=== PATIENT | female | born 1995 | race Two or more races ===

== ENCOUNTER 2024-05-04 08:44 | Emergency (ER) | payer OTHER, SELFPAY ==
[2024-05-04 08:53] VITALS: BP 106/71; PULSE 78; TEMP 36.7; O2SAT 98; BMI 26.3
--- NOTE | 2024-05-04 09:06 | XR_ITS ---
[address] [address] Patient Name: ARTEM ALMANZAR MRN: [id number] date: 1995 Sex: F Assigned Patient Location: ER Current Patient Location: ED.MAIN Accession/Order Number: [id number] Exam Date: 05/04/2024 09:28 Report Date: 05/04/2024 10:03 At the request of: KRISTINA BUCIO Procedure: XR chest 1V EXAM: XR chest 1V HISTORY: cough COMPARISON: None FINDINGS/IMPRESSION: 1. Lungs are clear 2. No pneumothorax. No pleural effusion. 3. Heart size and mediastinal contours are normal 4. No acute osseous abnormality Electronically authenticated by: GLORY CRUPM Date: 05/04/2024 10:03
[2024-05-04] MEDS: ONDANSETRON 4 MG RAPDIS TABLET SL (09:15)
--- NOTE | 2024-05-04 10:31 | ED.GENADUL1 ---
HPI HPI - General Adult General Chief complaint: Upper Respiratory Infection Stated complaint: NAUSEA AND VOMIT Time Seen by Provider: 05/04/24 08:57 Source: patient Mode of arrival: walk-in History of Present Illness HPI narrative: The patient is coming to the ER with almost 7 days history even not more of a coughing , the patient mentioned that she is not a smoker although she does smoke marijuana not very often the patient admitted that she needs a work excuse because her son is sick right now with influenza The patient also denies nausea vomiting or any other concerns. Related Data Previous Rx's ?Medication ?Instructions ?Recorded guaifenesin 600 mg tablet, 600 mg PO BID PRN cough #14 tabs 05/04/24 extended release 12 hr (Mucinex) prednisone 20 mg tablet 40 mg (2 x 20 mg) PO DAILY 5 days 05/04/24 #10 tabs Allergies Allergy/AdvReac Type Severity Reaction Status Date / Time No Known Drug Allergies Allergy Verified 05/04/24 08:56 Opioid HPI Opioid Management Most Recent Opioid Data: No Data to Display Review of Systems ROS Status of ROS 10 or more systems reviewed and unremarkable except as noted in history and below PFSH PFSH Social History Little interest or pleasure in doing things: not at all Feeling down, depressed, or hopeless: not at all Exam Narrative Exam Narrative: Nurses notes and vital signs reviewed and patient is not hypoxic. General: Well-appearing and in no apparent distress. Skin: Warm, dry, no pallor noted. No rash. Head: Normocephalic, atraumatic. Neck: Supple, non-tender. Eye: Pupils are equal, round and EOMI. No scleral icterus. Ears, Nose, Mouth, and Throat: TM are clear, no nasal mucosal hypertrophy. Oral mucosa is moist, no posterior oropharynx erythema, uvula is mid-line Cardiovascular: Regular Rate and Rhythm without murmur, gallop or rub. Respiratory: No accessory muscle use or respiratory distress. Lungs are clear to auscultation, no wheezing, rales or rhonchi Chest Wall: no tenderness Back: No midline thoracic or lumbar vertebral tenderness. No CVA tenderness Musculoskeletal: normal ROM, no calf or popliteal tenderness, no lower extremity edema/swelling GI: Abdomen is soft, non-distended. Normal bowel sounds. No masses appreciated. No tenderness to palpation. No rebound, guarding, or rigidity noted. Neurological: A&O x4. No cranial nerve dysfunction observed. No truncal ataxia. Moves all extremities. Sensation intact. Psychiatric: Cooperative and interactive. Normal mood and affect. Constitutional Vital Signs, click to edit/add: Last Vital Signs Temp 98.1 F 05/04/24 08:53 Pulse 78 05/04/24 08:53 Resp 20 05/04/24 08:53 BP 106/71 05/04/24 08:53 Pulse Ox 98 05/04/24 08:53 Course Vital Signs Vital signs: Vital Signs Temperature 98.1 F 05/04/24 08:53 Pulse Rate 78 05/04/24 08:53 Respiratory Rate 20 05/04/24 08:53 Blood Pressure 106/71 05/04/24 08:53 Pulse Oximetry 98 05/04/24 08:53 Temperature 98.1 F 05/04/24 08:53 Pulse Rate 78 05/04/24 08:53 Respiratory Rate 20 05/04/24 08:53 Blood Pressure 106/71 05/04/24 08:53 Pulse Oximetry 98 05/04/24 08:53 Medical Decision Making [facility] Narrative Medical decision making narrative: The patient chest x-ray showed no acute pathology Presented right now with bronchitis she was discharged home with prednisone and Mucinex supportive care with her history of smoking marijuana The patient is to follow up with primary care physician in next 2-3 days or to return to the emergency department should any of the signs or symptoms worsen or new symptoms develop. The patient agrees with the following Diagnosis and Treatment plan and the patient will be discharged home. Discharge Plan Discharge Chief Complaint: Upper Respiratory Infection Clinical Impression: Bronchitis Patient Disposition: Home, Self-Care Time of Disposition Decision: 09:56 Condition: Good Prescriptions / Home Meds: New prednisone 20 mg tablet 40 mg PO DAILY 5 Days Qty: 10 0RF guaifenesin [Mucinex] 600 mg tablet extended release 12hr 600 mg PO BID PRN (Reason: cough) Qty: 14 0RF Print Language: Lao Instructions: Acute Bronchitis (ED) Referrals: Physician,Non-Staff, MD [Primary Care Provider] - 1 week Discharge Date/Time: 05/04/24 10:11
== END 2024-05-04 10:11 | disposition home or self-care (01) ==
PROVIDERS: Emergency Provider Emergency Medicine
DX: J40 Bronchitis, not specified as acute or chronic (principal)
CPT/HCPCS: 71045; 99283; Q0162